=== PATIENT | female | born 1975 | race Hispanic/Latino ===

== ENCOUNTER 2017-06-17 22:15 | Emergency (ER) | payer SELFPAY ==
[~2017-06-17 22:15] MED LIST: ADIPEX-P37.5 M1 PO; ATENOLOL25 MG PO; CLONAZEPAM1 MG PO; DITROPAN XL10 MG PO; PYRIDIUM100 MG PO; TYLENOL WITH C1 EACH PO
== END 2017-06-17 22:28 | disposition short-term general hospital (02) ==
LOC: ER 22:15
DX: R10.9 Unspecified abdominal pain (principal)